=== PATIENT | female | born 1965 | race Caucasian/White ===

== ENCOUNTER 2023-01-18 20:16 | Emergency (ER) | payer SELFPAY ==
[2023-01-18] MEDS ORDERED: Ketorolac Tromethamine 30 MG/ML VIAL ONE (21:43)
== END 2023-01-18 22:21 | disposition home or self-care (01) ==
LOC: CSHERS 20:16
DX: M54.50 Low back pain, unspecified (principal); J44.9 Chronic obstructive pulmonary disease, unspecified; I10 Essential (primary) hypertension; Z87.891 Personal history of nicotine dependence
CPT/HCPCS: 96372; 99283; J1885